=== PATIENT | male | born 1975 | race Caucasian/White ===

== ENCOUNTER 2020-02-29 14:30 | Emergency (ER) | payer BC, OTHER ==
[~2020-02-29] VITALS: Ht 167.6 cm; Wt 65.5 kg
[2020-02-29 15:09] VITALS: BP 121/69
== END 2020-02-29 15:50 | disposition home or self-care (01) ==
LOC: ER 14:30
DX: R42 Dizziness and giddiness (principal); R11.2 Nausea with vomiting, unspecified; Z88.0 Allergy status to penicillin; Z20.828 Contact with and (suspected) exposure to other viral communicable diseases
CPT/HCPCS: 36415; 82948; 87635; 99283